=== PATIENT | female | born 1950 | race Caucasian/White ===

== ENCOUNTER 2021-08-20 08:30 | Day surgery (SDC) | payer OTHER ==
[2021-08-19 14:38] LABS: Hematocrit 37.9 % (36.0-45.0); Lymphocytes % 26.6 % (15.3-44.8); MPV 7.4 fL (7.6-11.3); RBC Red Blood Cell Count 4.11 M/uL (3.86-4.86)
[2021-08-19 14:46] LABS: Potassium 3.7 mmol/L (3.5-5.1)
--- NOTE | 2021-08-19 14:50 | RAD REPORT ---
EXAM DESCRIPTION: RAD - Chest Pa And Lat (2 Views) - 08/19/2021 2:33 pm CLINICAL HISTORY: pre op for surgery Chest pain. COMPARISON: CHEST PA AND LAT 2 VIEW dated 08/24/2012 FINDINGS: The lungs are clear. The heart is normal in size. No displaced fractures. IMPRESSION: No acute or concerning finding suspected.
[2021-08-20] MEDS ORDERED: Ringers Lactate 1,000 ML IV ONE (08:40)
[2021-08-20] MEDS ORDERED: ACETAMINOPHEN 500 MG TAB ONE (09:37)
[2021-08-20] MEDS ORDERED: CELECOXIB 100 MG CAPSULE ONE (09:37)
[2021-08-20] MEDS ORDERED: FENTANYL CITR 100 MCG/2 ML ONE (10:25)
[2021-08-20] MEDS ORDERED: MIDAZOLAM HCL 2 MG/2 ML INJ ONE (10:26)
[2021-08-20] MEDS ORDERED: propofoL 200 MG/20 ML VIAL IV ONE (10:26)
[2021-08-20] MEDS ORDERED: LIDOCAINE 2% MPF 5 ML VIAL ONE (10:29)
[2021-08-20] MEDS ORDERED: ONDANSETRON 4 MG/2 ML VIAL ONE (10:29)
[2021-08-20] MEDS ORDERED: CEFAZOLIN SODIUM 1 GM/VIAL ONE (11:16)
--- NOTE | 2021-08-20 11:46 | P.BOP ---
Preoperative diagnosis: ulcerated bleeding mass left jewish Postoperative diagnosis: same Primary procedure: Wide excision ulcerated mass left jewish 2.5 x 2.5 cm Specimen: mass Anesthesia: General Complications: None Transferred to: Recovery Room Condition: Good
[2021-08-20] MEDS ORDERED: EPHEDRINE SULF 50 MG/ML VIAL ONE (11:58)
[2021-08-20 14:11] VITALS: BP 128/68; TEMP 97.4; O2SAT 96
--- NOTE | 2021-08-21 07:45 | EKG ---
Test Date: 2021-08-19 Test Time: 13:14:17 Business Planning Analyst: EMETERIO MEASUREMENT RESULTS: Intervals: Rate: 93 WY: 158 QRSD: 76 QT: 358 QTc: 445 Webster: P: 74 WY: 158 QRS: 80 T: 37 INTERPRETIVE STATEMENTS: Normal sinus rhythm Normal ECG Compared to ECG 03/15/2002 12:35:00 ST (T wave) deviation no longer present Electronically Signed On 08-21-21 07:37:53 CDT by Tyler Maciel
--- NOTE | 2021-08-21 22:44 | OP ---
Surgeon: Armando Todd MD Preoperative Diagnosis: Ulcerated bleeding mass, left roman catholic. Postoperative Diagnosis: Ulcerated bleeding mass, left roman catholic. Procedure: Wide excision with frozen section of ulcerated mass, left roman catholic of 2.5 x 2.5 cm. Specimen: Mass. Findings: Vascularized mass. Further investigation will be done by the pathologist. Anesthesia: General plus local. Complications: None. Estimated Blood Loss: Less than 10 cc. Indications: This is the case of a 70-year-old patient who comes to us with a lesion on the forehead . The mold closer helper tried to get a sample of it, it is a scraped sample. Found a vascularized lesio n, expected it to resolve after they did that, but in the opposite way it went even bigger with ulcer ation and bleeding, so they want to rule out cancer. So a formal wide excision was requested. Benef its, alternatives, and risks were fully explained to the patient, after we agree, which include, but are not limited to infection, bleeding, damage to adjacent structures, anesthesia complication, nonhe aling wound, [place], and . She also understands this may not relieve the symptoms. She might need more than one surgical intervention. She understood, signed a consent. The area of concern was prakash ed by me and the patient in the holding room. Description Of Procedure: The patient was brought to the operating room, placed in supine position. Anesthesia was done without complication. A time-out was called. Local anesthetic was applied over the left roman catholic region, after prepping the area in the usual sterile fashion. A wedge incision to i nclude gross negative margins were done in the skin all the way down to subcutaneous tissue. The mas s was completely excised and sent to the pathologist and they claim it does not have any malignancy, at least on preliminary report. The patient tolerated the procedure well. Area was irrigated. Hemo stasis obtained. Then, the area was closed with 3-0 chromic and 4-0 nylon. Sponge count and instrum ent counts were correct. The patient tolerated the procedure well. The patient was sent to recovery room in stable condition. OFELIA/CHELO Voice ID: [id number] Report ID: [id number]
--- NOTE | 2021-08-21 22:50 | OP ---
Surgeon: Armando Todd MD Diagnosis: Ulcerated bleeding mass, left yarsani. Procedure: Wide excision of ulcerated mass, left yarsani. Disposition: Home. Activity: As tolerated. No heavy lifting. Discharge Followup: Follow up in my office in 1 week. Call for appointment at [phone]. Keep area dry for 48 hours, then may shower and then apply triple antibiotics. OFELIA/CHELO Voice ID: [id number] Report ID: [id number]
== END 2021-08-20 13:38 | disposition home or self-care (01) ==
LOC: OR 08:30
PROVIDERS: ATTEND Surgery
PROC: 0JB10ZZ Excision of Face Subcutaneous Tissue and Fascia, Open Approach (ICD-10-PCS; principal; 2021-08-20 10:30)
DX: L98.0 Pyogenic granuloma (principal); Z20.822 Contact with and (suspected) exposure to COVID-19
CPT/HCPCS: 11443; 93005; 85025; 80048; 36415; 88331; 88332; 88305; 71046; U0003; J2704; J2250; J3010; J7120; J2405; J0690